=== PATIENT | female | born 1965 | race Hispanic/Latino ===

== ENCOUNTER → 2018-04-23 | Outpatient (CLI) | payer MEDICAID ==
[~2018-04-23] MED LIST: ASCO10007 PO; ATOR10TA PO; CALC-38 PO; CYAN10009 PO; FERR325T22 PO; FOLI1TAB15 PO; LEFL10TA15 PO; METH2.5T6 PO; METO100T14 PO; POTA10CA44 PO; PRED5TAB PO; TOFA5TAB PO
== END | disposition home or self-care (01) ==
LOC: RAH 11:42
PROVIDERS: ATTEND Family Medicine
DX: S83.242A Other tear of medial meniscus, current injury, left knee, initial encounter (principal); S83.282A Other tear of lateral meniscus, current injury, left knee, initial encounter; S83.412A Sprain of medial collateral ligament of left knee, initial encounter; M71.22 Synovial cyst of popliteal space [Baker], left knee; X58.XXXA Exposure to other specified factors, initial encounter; Y93.89 Activity, other specified; Y92.89 Other specified places as the place of occurrence of the external cause; Y99.8 Other external cause status; M25.462 Effusion, left knee; M95.8 Other specified acquired deformities of musculoskeletal system
CPT/HCPCS: 73721